=== PATIENT | female | born 1965 | race Caucasian/White ===

== ENCOUNTER 2019-04-08 12:30 | Inpatient (IN) | payer MEDICAID ==
[~2019-04-08] VITALS: Ht 165.1 cm; Wt 136.4 kg
[~2019-04-08 12:30] MED LIST: ALBU18HF2 IH; CITA40TA22 PO; DIAZ5TAB PO; ESOM40CA49 PO; ONDA4TAB6 PO; QUET-1 PO; TOP100T PO; ZOLP5TAB8 PO
[2019-04-08] MEDS ORDERED: ESOM20CA38 PO (17:48)
[2019-04-08] MEDS ORDERED: QUET200T30 PO (17:49)
[2019-04-08] MEDS ORDERED: APIX5TAB3 PO (17:50)
[2019-04-08] MEDS ORDERED: TIZA4TAB5 PO (17:51)
[2019-04-08] MEDS ORDERED: BUPR1TAB40 PO (17:52)
[2019-04-08] MEDS ORDERED: GABA-534 PO (17:52)
[2019-04-08 18:00] VITALS: BP 153/64
--- NOTE | 2019-04-08 18:20 | NUR ---
Received report from MAVIS Coello. Assumed patient care.
[2019-04-08 19:47] LABS: BASOPHILS % (AUTO) 0.6 % (0-1); EOSINOPHILS # (AUTO) 0.2 X10'3 (0-0.9); HEMATOCRIT 37.5 % (35.0-45.0); HEMOGLOBIN 12.3 g/dl (12.0-16.0); LYMPHOCYTES # (AUTO) 2.6 X10'3 (1.1-4.8); LYMPHOCYTES % (AUTO) 43.3 % (21-51); MEAN CORPUSCULAR HEMOGLOBIN 27.5 PG (27.0-31.0); MEAN CORPUSCULAR HGB CONC 32.8 g/dL (33.0-36.5); MEAN CORPUSCULAR VOLUME 83.8 FL (78-98); MEAN PLATELET VOLUME 8.4 FL (7.4-10.4); MONOCYTES # (AUTO) 0.6 X10'3 (0-0.9); MONOCYTES % (AUTO) 9.3 % (2-12); NEUTROPHILS # (AUTO) 2.6 X10'3 (1.8-7.7); NEUTROPHILS % (AUTO) 43.8 % (42-75); PLATELET COUNT 278 X10'3 (140-440); RED BLOOD COUNT 4.48 X10'6 (4.20-5.60); WHITE BLOOD COUNT 5.9 X10'3 (4.5-11.0)
[2019-04-08 19:56] LABS: PARTIAL THROMBOPLASTIN TIME 28 SECONDS (22-32)
[2019-04-08 19:58] LABS: ALANINE AMINOTRANSFERASE 12 U/L (12-78); ALBUMIN 2.7 G/DL (3.4-5.0); ALBUMIN/GLOBULIN RATIO 0.7 (1.1-1.5); ALKALINE PHOSPHATASE 68 IU/L (46-116); ANION GAP 6 (8-16); ASPARTATE AMINO TRANSFERASE 13 U/L (10-37); BILIRUBIN,TOTAL 0.2 MG/DL (0.1-1.0); BLOOD UREA NITROGEN 16 MG/DL (7-18); CALCIUM 9.4 MG/DL (8.5-10.1); CHLORIDE 105 MMOL/L (99-107); CREATININE 0.89 MG/DL (0.40-0.90); GLUCOSE 87 MG/DL (70-104); POTASSIUM 3.8 MMOL/L (3.5-5.1); SODIUM 142 MMOL/L (135-145); TOTAL CARBON DIOXIDE 31.2 MMOL/L (24-32); TOTAL PROTEIN 6.5 G/DL (6.4-8.2); eGFR 66 ML/MIN
[2019-04-08] MEDS ORDERED: diphenhydrAMINE 25mg capsule PO PRN (21:35)
[2019-04-08] MEDS ORDERED: acetaminophen 325mg tablet PO PRN (21:35)
[2019-04-08] MEDS ORDERED: zolpidem 5mg tablet PO PRN (21:35)
[2019-04-08] MEDS ORDERED: HYDROcodone/acetaminophen 10/325mg tab PO PRN (21:35)
[2019-04-08 22:00] VITALS: BP 91/55
[2019-04-08] MEDS: HYDROcodone/acetaminophen 10/325mg tab PO PRN (22:48)
[2019-04-09] VITALS (20 sets, daily range): BP systolic 96–164; BP diastolic 42–99
[2019-04-09] MEDS ORDERED: albuterol 2.5 MG/3 ML nebule NEB PRN (00:55)
[2019-04-09] MEDS: HYDROcodone/acetaminophen 10/325mg tab PO PRN ×2 (04:43→16:57)
[2019-04-09 05:44] LABS: BASOPHILS % (AUTO) 0.9 % (0-1); EOSINOPHILS # (AUTO) 0.2 X10'3 (0-0.9); EOSINOPHILS % (AUTO) 3.6 % (0-6); HEMATOCRIT 36.7 % (35.0-45.0); LYMPHOCYTES # (AUTO) 2.2 X10'3 (1.1-4.8); LYMPHOCYTES % (AUTO) 41.7 % (21-51); MEAN CORPUSCULAR HEMOGLOBIN 27.5 PG (27.0-31.0); MEAN CORPUSCULAR HGB CONC 32.7 g/dL (33.0-36.5); MEAN CORPUSCULAR VOLUME 84.1 FL (78-98); MEAN PLATELET VOLUME 8.4 FL (7.4-10.4); MONOCYTES # (AUTO) 0.5 X10'3 (0-0.9); MONOCYTES % (AUTO) 9.5 % (2-12); NEUTROPHILS # (AUTO) 2.4 X10'3 (1.8-7.7); NEUTROPHILS % (AUTO) 44.3 % (42-75); PLATELET COUNT 240 X10'3 (140-440); RED BLOOD COUNT 4.36 X10'6 (4.20-5.60); RED CELL DISTRIBUTION WIDTH 17.2 % (11.5-14.5); WHITE BLOOD COUNT 5.4 X10'3 (4.5-11.0)
[2019-04-09 06:02] LABS: ANION GAP 5 (8-16); CHLORIDE 106 MMOL/L (99-107); POTASSIUM 4.2 MMOL/L (3.5-5.1); SODIUM 142 MMOL/L (135-145); TOTAL CARBON DIOXIDE 30.7 MMOL/L (24-32)
--- NOTE | 2019-04-09 06:31 | NUR ---
Report given, questions answered and plan of care reviewed with MAVIS Sapp.
--- NOTE | 2019-04-09 06:33 | NUR ---
Patient in room ORTHO 4015. I have received report from Mikayla GAMBLE and had the opportunity to ask questions and assume patient care.
--- NOTE | 2019-04-09 06:38 | NUR ---
received report from Mikayla GAMBLE
[2019-04-09] MEDS: apixaban 5mg tablet PO SCH ×2 (07:01→19:54)
[2019-04-09] MEDS: gabapentin 400mg capsule PO SCH ×2 (07:40→19:54)
[2019-04-09] MEDS: quetiapine 100mg tablet PO SCH ×3 (07:41→20:50)
[2019-04-09] MEDS: pantoprazole 40mg Tablet.DR PO SCH ×2 (07:41→19:55)
[2019-04-09] MEDS: tizanidine 4mg tablet PO PRN ×2 (07:49→20:50)
[2019-04-09] MEDS ORDERED: BUPRENORPHINE HCL PO SCH (08:00)
[2019-04-09] MEDS ORDERED: NALOXONE HCL PO SCH (08:00)
[2019-04-09] MEDS ORDERED: vancomycin 1,000mg inj ONE (11:45)
[2019-04-09] MEDS ORDERED: ROPIVAcaine 0.5% (5mg/ml) 30ml vial ONE ×2 (11:45→13:58)
[2019-04-09] MEDS ORDERED: ketorolac trometh. 30mg/ml inj. ONE (11:45)
--- NOTE | 2019-04-09 12:11 | NUR ---
pt left floor, going to surgery
[2019-04-09] MEDS ORDERED: midazolam 2 mg/2 ml injection ONE (12:33)
[2019-04-09] MEDS ORDERED: fentaNYL /PF 50mcg/ml 5ml ampule ONE (12:33)
[2019-04-09] MEDS ORDERED: ceFAZolin 1000mg inj ONE (13:17)
[2019-04-09] MEDS ORDERED: ketamine 50mg/5ml syringe ONE (13:39)
[2019-04-09] MEDS ORDERED: ringers solution, lacted 1,000 ML IV SCH (13:53)
[2019-04-09] MEDS ORDERED: ROPIVAcaine 0.2%/PF PUMP/bolus 400 ML ADDCANAL SCH (13:53)
[2019-04-09] MEDS ORDERED: ondansetron/PF 4mg/2ml inj IV PRN ×2 (13:55→14:55)
[2019-04-09] MEDS ORDERED: meperidine/PF 25mg/ml syringe IV PRN ×2 (13:55)
[2019-04-09] MEDS ORDERED: proCHLORperazine 10 MG/2 ml inj IV PRN (13:55)
[2019-04-09] MEDS ORDERED: morphine 4 MG/ML inj SYRINge IV PRN ×2 (13:55)
[2019-04-09] MEDS ORDERED: neostigmine methylsulfate 1 MG/ML 10ml vial ONE (13:56)
[2019-04-09] MEDS ORDERED: glycopyrrolate 0.2mg/ml inj ONE (13:56)
[2019-04-09] MEDS ORDERED: rocuronium 10mg/ml inj IV ONE (13:56)
[2019-04-09] MEDS ORDERED: LIDOcaine 2% (20mg/ml) 5ml vial ONE (13:56)
[2019-04-09] MEDS ORDERED: ondansetron/PF 4mg/2ml inj ONE (13:56)
[2019-04-09] MEDS ORDERED: propofol inj 40 ML IV ONE (13:56)
[2019-04-09] MEDS ORDERED: bisacodyl 10mg suppository rectal RC PRN (14:55)
[2019-04-09] MEDS ORDERED: acetaminophen 325mg tablet PO PRN (14:55)
[2019-04-09] MEDS ORDERED: oxyCODONE IR 5mg (immed. release) tablet PO PRN (14:55)
[2019-04-09] MEDS ORDERED: diphenhydrAMINE 25mg capsule PO PRN ×2 (14:55)
[2019-04-09] MEDS ORDERED: HYDROmorphone inj. 0.5 MG/0.5 ML DISP.SYRIN IV PRN (14:55)
[2019-04-09] MEDS ORDERED: magnesium hydroxide 30ml (MOM) UD suspension PO PRN (14:55)
[2019-04-09 15:00] LABS: APPEARANCE,SYNOVIAL FLUID CLOUDY; COLOR,SYNOVIAL FLUID RED
[2019-04-09 15:01] LABS: SYN RBC 17300 /CU MM (0)
[2019-04-09 15:02] LABS: LYMPHOCYTES,SYNOVIAL FLUID 11 % (0-75); MONOCYTES,SYNOVIAL FLUID 4 % (0-0); NEUTROPHILS,SYNOVIAL FLUID 85 % (0-25)
[2019-04-09 15:09] LABS: SYN WBC 4050 /CU MM (0-200)
--- NOTE | 2019-04-09 15:30 | NUR ---
Received from OR via BED , accompanied by Anesthesiologist DR MATA and report given by Anesthesiolgist. PATIENT A&OX4, DENIES PAIN, V/S WNL, NEUROVASCULAR CHECKS INTACT, 20G PIV LUE , ALLISON DRESSING TO RIGHT KNEE CDI W/ COLD POWDER PACK , SCD ON, BRACE LOCKED IN EXTENSION TO RLE, ON QUE BALL WELL.
[2019-04-09] MEDS ORDERED: ipratropium/albuterol 3ml nebule IH ONE (15:35)
[2019-04-09] MEDS: ROPIVAcaine 0.2%/PF PUMP/bolus 550 ML INTERSCALE SCH (15:54)
[2019-04-09] MEDS: meperidine/PF 25mg/ml syringe IV PRN ×4 (15:58→16:26)
--- NOTE | 2019-04-09 16:06 | NUR ---
Malnutrition consult. Patient s/p removal of arthroplasty with implantation of antibiotic spacers to right knee 04/09; per MD note patient has ongoing episodes of LE cellulitis and had suspected infection right TKA. Per MD note, patient has BMI between 45-49.9; no current weight or height documented, d/w bedside RN to obtain both when patient returns from surgery. Patient's BMI two years ago was 45, likely no significant weight loss recently, will continue to monitor. Addendum: 04/09/19 at [address] Amended: Links added.
--- NOTE | 2019-04-09 16:20 | NUR ---
PATIENT A&OX4, DENIES PAIN, V/S WNL, NEUROVASCULAR CHECKS INTACT, 20G PIV LUE , ALLISON DRESSING TO RIGHT KNEE CDI AND SALVATORE WITH SMALL AMOUNT IN DRAin, also knee dressing W/ COLD POWDER PACK , SCD ON, BRACE LOCKED IN EXTENSION TO RLE, ON QUE BALL WELL. PATIENT TAKEN TO ortho WITH ALL BELONGINGS AND HOOKED UP TO MONITORS IN ROOM AND REPORT GIVEN TO KETTLE TENDER WHO HAS TAKEN OVER PATIENT CARE.
--- NOTE | 2019-04-09 16:30 | NUR ---
received post surgical report from JONNY Villa RN
[2019-04-09] MEDS: ceFAZolin 1GM/D5W- ADD-VANTAGE 50 ML IV SCH ×2 (16:59→23:46)
--- NOTE | 2019-04-09 18:05 | NUR ---
Received report from MAVIS Sapp. Assumed patient care.
[2019-04-09] MEDS: potassium cl 20mEq in 1/2 NS 1,000 ML IV SCH ×2 (18:18→19:48)
--- NOTE | 2019-04-09 18:26 | NUR ---
Problems reprioritized. Patient report given, questions answered & plan of care reviewed with Mikayla GAMBLE.
[2019-04-09] MEDS: HYDROmorphone 1 mg/ml syringe IV PRN (19:02)
[2019-04-09] MEDS: acetaminophen 325mg tablet PO SCH (19:54)
[2019-04-09] MEDS: docusate sod 100mg capsule PO SCH (19:54)
[2019-04-09] MEDS ORDERED: vancomycin/NS 1 GM ADD-VANTAGE 250 ML IV SCH (20:00)
[2019-04-09] MEDS: sennosides 8.6mg tablet PO SCH (20:50)
[2019-04-09] MEDS: oxyCODONE IR 5mg (immed. release) tablet PO PRN (21:03)
[2019-04-10] MEDS: acetaminophen 325mg tablet PO SCH ×4 (01:48→20:00)
[2019-04-10] MEDS: oxyCODONE IR 5mg (immed. release) tablet PO PRN ×2 (01:57→05:59)
[2019-04-10 02:00] VITALS: BP 111/68
--- NOTE | 2019-04-10 02:52 | NUR ---
Documented SALVATORE drainage output at right hip, it should be right knee. Addendum: 04/10/19 at 0253 by Mikayla Melchor RN Amended: Links added.
[2019-04-10] MEDS: HYDROmorphone 1 mg/ml syringe IV PRN ×2 (05:02→09:10)
[2019-04-10] MEDS: potassium cl 20mEq in 1/2 NS 1,000 ML IV SCH ×2 (05:09→14:54)
[2019-04-10 06:00] VITALS: BP 105/60
[2019-04-10 06:07] LABS: BASOPHILS % (AUTO) 0.3 % (0-1); EOSINOPHILS # (AUTO) 0.1 X10'3 (0-0.9); EOSINOPHILS % (AUTO) 1.6 % (0-6); HEMOGLOBIN 9.9 g/dl (12.0-16.0); LYMPHOCYTES # (AUTO) 1.5 X10'3 (1.1-4.8); LYMPHOCYTES % (AUTO) 22.6 % (21-51); MEAN CORPUSCULAR HEMOGLOBIN 27.7 PG (27.0-31.0); MEAN PLATELET VOLUME 8.6 FL (7.4-10.4); MONOCYTES # (AUTO) 0.7 X10'3 (0-0.9); MONOCYTES % (AUTO) 9.9 % (2-12); NEUTROPHILS # (AUTO) 4.5 X10'3 (1.8-7.7); NEUTROPHILS % (AUTO) 65.6 % (42-75); PLATELET COUNT 217 X10'3 (140-440); RED BLOOD COUNT 3.57 X10'6 (4.20-5.60); RED CELL DISTRIBUTION WIDTH 17.1 % (11.5-14.5); WHITE BLOOD COUNT 6.8 X10'3 (4.5-11.0)
--- NOTE | 2019-04-10 06:20 | NUR ---
Patient report given, questions answered and plan of care reviewed with MAVIS Sapp.
[2019-04-10 06:22] LABS: ANION GAP 4 (8-16); CHLORIDE 107 MMOL/L (99-107); POTASSIUM 4.4 MMOL/L (3.5-5.1); SODIUM 141 MMOL/L (135-145); TOTAL CARBON DIOXIDE 30.2 MMOL/L (24-32)
--- NOTE | 2019-04-10 06:43 | NUR ---
Patient in room ORTHO 4015. I have received report from DAMION GAMBLE and had the opportunity to ask questions and assume patient care.
[2019-04-10] MEDS: docusate sod 100mg capsule PO SCH ×2 (08:03→20:16)
[2019-04-10] MEDS: apixaban 5mg tablet PO SCH ×2 (08:03→20:17)
[2019-04-10] MEDS: quetiapine 100mg tablet PO SCH ×3 (08:03→22:22)
[2019-04-10] MEDS: pantoprazole 40mg Tablet.DR PO SCH ×2 (08:03→20:16)
[2019-04-10] MEDS: gabapentin 400mg capsule PO SCH ×2 (08:04→20:16)
[2019-04-10] MEDS ORDERED: aspirin 325mg tablet PO SCH (08:30)
[2019-04-10] MEDS: tizanidine 4mg tablet PO PRN ×3 (09:11→22:22)
[2019-04-10] MEDS ORDERED: oxyCODONE/APAP 10/325mg tablet PO PRN (09:30)
[2019-04-10 10:00] VITALS: BP 140/71
[2019-04-10] MEDS: oxyCODONE/APAP 10/325mg tablet PO PRN ×3 (10:09→20:23)
--- NOTE | 2019-04-10 11:42 | NUR ---
Student documentation: I have reviewed all interventions, assessments performed and [facility] Student Medication Administration: For this medication-pass time frame, all medication were reviewed, dispensed, administered and documented per hospital policy by [facility].
[2019-04-10 14:00] VITALS: BP 100/54
[2019-04-10 18:00] VITALS: BP 90/48
--- NOTE | 2019-04-10 18:45 | NUR ---
Patient in room ORTHO 4015. I have received report from MAVIS Sapp and had the opportunity to ask questions and assume patient care.
--- NOTE | 2019-04-10 18:51 | NUR ---
Problems reprioritized. Patient report given, questions answered & plan of care reviewed with Jocelyn GAMBLE.
[2019-04-10] MEDS: sennosides 8.6mg tablet PO SCH (20:23)
[2019-04-10 22:00] VITALS: BP 105/54
[2019-04-11] MEDS: acetaminophen 325mg tablet PO SCH ×3 (01:27→14:00)
[2019-04-11] MEDS: potassium cl 20mEq in 1/2 NS 1,000 ML IV SCH ×2 (02:03→11:28)
[2019-04-11] MEDS: oxyCODONE/APAP 10/325mg tablet PO PRN ×4 (02:04→21:00)
[2019-04-11 02:57] LABS: ANION GAP 2 (8-16); BLOOD UREA NITROGEN 10 MG/DL (7-18); C-REACTIVE PROTEIN 9.75 MG/DL (0.0-0.5); CALCIUM 8.1 MG/DL (8.5-10.1); CHLORIDE 107 MMOL/L (99-107); CREATININE 0.91 MG/DL (0.40-0.90); GLUCOSE 112 MG/DL (70-104); POTASSIUM 4.6 MMOL/L (3.5-5.1); SODIUM 139 MMOL/L (135-145); TOTAL CARBON DIOXIDE 29.7 MMOL/L (24-32); eGFR 65 ML/MIN
[2019-04-11 03:02] LABS: BASOPHILS % (AUTO) 0.3 % (0-1); EOSINOPHILS # (AUTO) 0.3 X10'3 (0-0.9); EOSINOPHILS % (AUTO) 3.6 % (0-6); HEMATOCRIT 26.5 % (35.0-45.0); HEMOGLOBIN 8.8 g/dl (12.0-16.0); LYMPHOCYTES # (AUTO) 1.6 X10'3 (1.1-4.8); LYMPHOCYTES % (AUTO) 22.3 % (21-51); MEAN CORPUSCULAR HGB CONC 33.1 g/dL (33.0-36.5); MEAN CORPUSCULAR VOLUME 84.6 FL (78-98); MEAN PLATELET VOLUME 8.9 FL (7.4-10.4); MONOCYTES # (AUTO) 0.8 X10'3 (0-0.9); MONOCYTES % (AUTO) 11.4 % (2-12); NEUTROPHILS # (AUTO) 4.6 X10'3 (1.8-7.7); NEUTROPHILS % (AUTO) 62.4 % (42-75); PLATELET COUNT 172 X10'3 (140-440); RED BLOOD COUNT 3.14 X10'6 (4.20-5.60); RED CELL DISTRIBUTION WIDTH 17.3 % (11.5-14.5); WHITE BLOOD COUNT 7.3 X10'3 (4.5-11.0)
[2019-04-11] MEDS: HYDROmorphone 1 mg/ml syringe IV PRN (05:11)
[2019-04-11 06:00] VITALS: BP 93/46
--- NOTE | 2019-04-11 06:35 | NUR ---
Problems reprioritized. Patient report given, questions answered & plan of care reviewed with MAVIS Wharton.
--- NOTE | 2019-04-11 06:49 | NUR ---
Patient in room ORTHO 4015. I have received report from Jocelyn GAMBLE and had the opportunity to ask questions and assume patient care. All patients needs met at this time.
[2019-04-11 07:20] VITALS: BP 102/51
[2019-04-11] MEDS: docusate sod 100mg capsule PO SCH ×2 (08:46→21:00)
[2019-04-11] MEDS: apixaban 5mg tablet PO SCH ×2 (08:46→21:00)
[2019-04-11] MEDS: quetiapine 100mg tablet PO SCH ×3 (08:47→21:01)
[2019-04-11] MEDS: pantoprazole 40mg Tablet.DR PO SCH ×2 (08:47→20:59)
[2019-04-11] MEDS: gabapentin 400mg capsule PO SCH ×2 (08:47→21:00)
[2019-04-11] MEDS: tizanidine 4mg tablet PO PRN ×3 (08:54→23:23)
--- NOTE | 2019-04-11 09:37 | NUR ---
Paged Physical Therapy per patient's request to be put back to bed from bedside chair. Re: [id number] Sadia Schneider Pt would like to be put back to bed please. Thank you
[2019-04-11 10:00] VITALS: BP 107/59
[2019-04-11] MEDS ORDERED: VANCOMYCIN LEVEL IV ONE (10:30)
--- NOTE | 2019-04-11 11:42 | NUR ---
Student Medication Administration: For this medication-pass time frame, all medication were reviewed, dispensed, administered and documented per hospital policy [facility] Student documentation: I have reviewed all interventions, assessments performed and documented [facility].
[2019-04-11] MEDS ORDERED: acetaminophen 325mg tablet PO PRN (14:55)
[2019-04-11] MEDS: ROPIVAcaine 0.2%/PF PUMP/bolus 550 ML INTERSCALE SCH (16:17)
[2019-04-11 18:00] VITALS: BP 111/54
--- NOTE | 2019-04-11 18:15 | NUR ---
Patient in room ORTHO 4015. I have received report from MAVIS Wharton and had the opportunity to ask questions and assume patient care.
--- NOTE | 2019-04-11 18:33 | NUR ---
Problems reprioritized. Patient report given, questions answered & plan of care reviewed with Ivet GAMBLE. All patient's needs met at this time.
[2019-04-11] MEDS: lactobacillus rhamnosus 10,000 MMU CELLS/CAPSULE PO SCH (21:00)
[2019-04-11] MEDS: sennosides 8.6mg tablet PO SCH (21:00)
[2019-04-11 22:00] VITALS: BP 101/52
[2019-04-12] MEDS: oxyCODONE/APAP 10/325mg tablet PO PRN ×4 (01:58→23:55)
[2019-04-12 05:23] LABS: BASOPHILS % (AUTO) 0.4 % (0-1); EOSINOPHILS # (AUTO) 0.4 X10'3 (0-0.9); EOSINOPHILS % (AUTO) 6.7 % (0-6); HEMATOCRIT 26.7 % (35.0-45.0); HEMOGLOBIN 8.7 g/dl (12.0-16.0); LYMPHOCYTES # (AUTO) 1.9 X10'3 (1.1-4.8); LYMPHOCYTES % (AUTO) 29.1 % (21-51); MEAN CORPUSCULAR HEMOGLOBIN 27.6 PG (27.0-31.0); MEAN CORPUSCULAR HGB CONC 32.8 g/dL (33.0-36.5); MEAN CORPUSCULAR VOLUME 84.2 FL (78-98); MEAN PLATELET VOLUME 8.8 FL (7.4-10.4); MONOCYTES # (AUTO) 0.8 X10'3 (0-0.9); MONOCYTES % (AUTO) 12.2 % (2-12); NEUTROPHILS # (AUTO) 3.3 X10'3 (1.8-7.7); NEUTROPHILS % (AUTO) 51.6 % (42-75); PLATELET COUNT 170 X10'3 (140-440); RED BLOOD COUNT 3.17 X10'6 (4.20-5.60); RED CELL DISTRIBUTION WIDTH 16.8 % (11.5-14.5); WHITE BLOOD COUNT 6.5 X10'3 (4.5-11.0)
[2019-04-12 05:37] LABS: ANION GAP 7 (8-16); CHLORIDE 105 MMOL/L (99-107); POTASSIUM 4.5 MMOL/L (3.5-5.1); SODIUM 140 MMOL/L (135-145); TOTAL CARBON DIOXIDE 28.2 MMOL/L (24-32)
[2019-04-12 06:00] VITALS: BP 113/68
--- NOTE | 2019-04-12 06:27 | NUR ---
Problems reprioritized. Patient report given, questions answered & plan of care reviewed with MAVIS Jensen.
--- NOTE | 2019-04-12 06:32 | NUR ---
Patient in room ORTHO 4015. I have received report from Ivet and had the opportunity to ask questions and assume patient care.
[2019-04-12] MEDS: lactobacillus rhamnosus 10,000 MMU CELLS/CAPSULE PO SCH ×2 (07:43→20:18)
[2019-04-12] MEDS: apixaban 5mg tablet PO SCH ×2 (07:43→20:18)
[2019-04-12] MEDS: docusate sod 100mg capsule PO SCH ×2 (07:43→20:18)
[2019-04-12] MEDS: gabapentin 400mg capsule PO SCH ×2 (07:44→20:19)
[2019-04-12] MEDS: pantoprazole 40mg Tablet.DR PO SCH ×2 (07:44→20:19)
[2019-04-12] MEDS: quetiapine 100mg tablet PO SCH ×3 (07:45→20:20)
[2019-04-12] MEDS: tizanidine 4mg tablet PO PRN ×3 (08:28→20:22)
[2019-04-12 10:00] VITALS: BP 118/65
--- NOTE | 2019-04-12 12:00 | NUR ---
Initial: Pt admit with cellulitis to right knee s/p TKA. Pt on regular diet with poor PO intake 04/09 however has since been documented with 75-100% PO intake likely closely meeting nutrient needs. LBM 04/09, receiving routine Colace and Senna. No nutrition diagnosis at this time. Will continue to follow and monitor need for additional protein. Recommendations: 1) Continue regular diet 2) Monitor need for ONS/additional protein 3) Bowel care 4) Wt per rx Addendum: 04/12/19 at [address] Amended: Links added.
--- NOTE | 2019-04-12 12:51 | NUR ---
Patient in room ORTHO 4015. I have received report from Camila GAMBLE and had the opportunity to ask questions and assume patient care.
--- NOTE | 2019-04-12 12:53 | NUR ---
Problems reprioritized. Patient report given, questions answered & plan of care reviewed with Gabe.
[2019-04-12] MEDS ORDERED: VANCOMYCIN LEVEL IV ONE (14:30)
[2019-04-12 18:00] VITALS: BP 114/67
--- NOTE | 2019-04-12 18:09 | NUR ---
Problems reprioritized. Patient report given, questions answered & plan of care reviewed with Verna GAMBLE.
--- NOTE | 2019-04-12 18:12 | NUR ---
Patient in room ORTHO 4015. I have received report from Gabe GAMBLE and had the opportunity to ask questions and assume patient care.
[2019-04-12] MEDS: sennosides 8.6mg tablet PO SCH (20:19)
[2019-04-12 22:00] VITALS: BP 109/81
[2019-04-13] MEDS ORDERED: ROPIVAcaine 0.2%/PF PUMP/bolus 550 ML INTERSCALE SCH (00:12)
[2019-04-13] MEDS ORDERED: VANCOMYCIN LEVEL IV ONE (03:00)
[2019-04-13 03:21] LABS: BASOPHILS % (AUTO) 0.7 % (0-1); EOSINOPHILS # (AUTO) 0.4 X10'3 (0-0.9); EOSINOPHILS % (AUTO) 7.5 % (0-6); HEMATOCRIT 25.4 % (35.0-45.0); HEMOGLOBIN 8.3 g/dl (12.0-16.0); LYMPHOCYTES # (AUTO) 1.9 X10'3 (1.1-4.8); LYMPHOCYTES % (AUTO) 32.9 % (21-51); MEAN CORPUSCULAR HEMOGLOBIN 27.6 PG (27.0-31.0); MEAN CORPUSCULAR HGB CONC 32.8 g/dL (33.0-36.5); MEAN CORPUSCULAR VOLUME 84.4 FL (78-98); MONOCYTES # (AUTO) 0.6 X10'3 (0-0.9); MONOCYTES % (AUTO) 11.1 % (2-12); NEUTROPHILS # (AUTO) 2.7 X10'3 (1.8-7.7); NEUTROPHILS % (AUTO) 47.8 % (42-75); PLATELET COUNT 176 X10'3 (140-440); RED BLOOD COUNT 3.01 X10'6 (4.20-5.60); RED CELL DISTRIBUTION WIDTH 17.4 % (11.5-14.5); WHITE BLOOD COUNT 5.7 X10'3 (4.5-11.0)
[2019-04-13 03:33] LABS: ANION GAP 4 (8-16); CHLORIDE 108 MMOL/L (99-107); SODIUM 142 MMOL/L (135-145); TOTAL CARBON DIOXIDE 30.2 MMOL/L (24-32); VANCOMYCIN,RANDOM 18.8 UG/ML
--- NOTE | 2019-04-13 05:26 | NUR ---
CEDRICK'dima SALVATORE drain per order.
[2019-04-13] MEDS: oxyCODONE/APAP 10/325mg tablet PO PRN ×2 (05:31→12:04)
[2019-04-13 06:00] VITALS: BP 107/56
--- NOTE | 2019-04-13 06:31 | NUR ---
Problems reprioritized. Patient report given, questions answered & plan of care reviewed with Gabe GAMBLE.
--- NOTE | 2019-04-13 06:34 | NUR ---
Patient in room ORTHO 4015. I have received report from Verna GAMBLE and had the opportunity to ask questions and assume patient care.
[2019-04-13] MEDS: quetiapine 100mg tablet PO SCH ×2 (07:39→13:38)
[2019-04-13] MEDS: apixaban 5mg tablet PO SCH (07:39)
[2019-04-13] MEDS: gabapentin 400mg capsule PO SCH (07:39)
[2019-04-13] MEDS: docusate sod 100mg capsule PO SCH (07:39)
[2019-04-13] MEDS: lactobacillus rhamnosus 10,000 MMU CELLS/CAPSULE PO SCH (07:39)
[2019-04-13] MEDS: pantoprazole 40mg Tablet.DR PO SCH (07:39)
[2019-04-13] MEDS: tizanidine 4mg tablet PO PRN ×2 (07:47→12:04)
[2019-04-13] MEDS ORDERED: vancomycin/NS 1 GM ADD-VANTAGE 250 ML IV SCH (08:00)
[2019-04-13 10:00] VITALS: BP 122/50
--- NOTE | 2019-04-13 15:35 | NUR ---
Safe DC. With spouse. all personal items with patient.
[2019-04-14] MEDS ORDERED: VANCOMYCIN LEVEL IV ONE (07:30)
== END 2019-04-13 15:40 | disposition home health service (06) | DRG 320 ==
LOC: EDSTATUS 12:30 → ORTHO 4S 17:09 → EDSTATUS 04-09 12:30
PROVIDERS: ADMIT Orthopaedic Surgery; ATTEND Orthopaedic Surgery
PROC: 0SHC08Z Insertion of Spacer into Right Knee Joint, Open Approach (ICD-10-PCS; 2019-04-09)
PROC: 3E0T3BZ Introduction of Anesthetic Agent into Peripheral Nerves and Plexi, Percutaneous Approach (ICD-10-PCS; 2019-04-09)
PROC: 3E0U029 Introduction of Other Anti-infective into Joints, Open Approach (ICD-10-PCS; 2019-04-09)
PROC: 0SPC0JZ Removal of Synthetic Substitute from Right Knee Joint, Open Approach (ICD-10-PCS; principal; 2019-04-09 12:25)
PROC: 02HV33Z Insertion of Infusion Device into Superior Vena Cava, Percutaneous Approach (ICD-10-PCS; 2019-04-10)
PROC: B548ZZA Ultrasonography of Superior Vena Cava, Guidance (ICD-10-PCS; 2019-04-10)
DX: T84.53XA Infection and inflammatory reaction due to internal right knee prosthesis, initial encounter (principal); D62 Acute posthemorrhagic anemia; E66.01 Morbid (severe) obesity due to excess calories; L03.115 Cellulitis of right lower limb; Z68.43 Body mass index [BMI] 50.0-59.9, adult; F43.10 Post-traumatic stress disorder, unspecified; I10 Essential (primary) hypertension; M65.861 Other synovitis and tenosynovitis, right lower leg; F32.9 Major depressive disorder, single episode, unspecified; F41.9 Anxiety disorder, unspecified; G89.29 Other chronic pain; Z96.651 Presence of right artificial knee joint; K21.9 Gastro-esophageal reflux disease without esophagitis; J45.909 Unspecified asthma, uncomplicated; M54.2 Cervicalgia; R73.03 Prediabetes; M79.7 Fibromyalgia; Y83.1 Surgical operation with implant of artificial internal device as the cause of abnormal reaction of the patient, or of later complication, without mention of misadventure at the time of the procedure; Z86.718 Personal history of other venous thrombosis and embolism; Z87.891 Personal history of nicotine dependence; Z90.710 Acquired absence of both cervix and uterus; Z98.1 Arthrodesis status; Z88.8 Allergy status to other drugs, medicaments and biological substances; Z79.899 Other long term (current) drug therapy
CPT/HCPCS: 36415; 36569; 76937; 80048; 80051; 80053; 80202; 82948; 85025; 85610; 85651; 85730; 86140; 86885; 87070; 87075; 87081; 89051; 94640; 94760; 97110; 97112; 97116; 97161; 97530; 97542; A4618; A7000; A9272; C1713; C1758; C1776; G0378; J0690; J1170; J1885; J2001; J2175; J2250; J2270; J2405; J2704; J2710; J2795; J3010; J3370; J3480; J3490; J7030; J7120; L1832

== ENCOUNTER 2020-01-22 07:45 | Outpatient (CLI) | payer MEDICAID ==
[~2020-01-22] VITALS: Ht 182.9 cm; Wt 129.5 kg
[~2020-01-22 07:45] MED LIST changes: +APIX5TAB3 PO; +BUPR1TAB40 PO; -CITA40TA22 PO; -DIAZ5TAB PO; +ESOM20CA38 PO; -ESOM40CA49 PO; +GABA-534 PO; -ONDA4TAB6 PO; -QUET-1 PO; +QUET200T30 PO; +TIZA4TAB5 PO; -TOP100T PO
[2020-01-22] MEDS ORDERED: nitroGLYCERIN 0.4mg SUBLingual tab SL PRN (09:15)
[2020-01-22] MEDS ORDERED: aminophylline 250mg/10ml inj. IV PRN (09:15)
[2020-01-22] MEDS ORDERED: metoprolol tartrate 1mg/ml inj IV PRN (09:15)
[2020-01-22] MEDS ORDERED: regadenoson 0.4mg/5ml syringe IV PRN (09:25)
[2020-01-22 09:46] VITALS: BP 145/71
[2020-01-22 09:48] VITALS: BP 140/61
[2020-01-22 09:49] VITALS: BP 147/69
[2020-01-22 09:50] VITALS: BP 141/70
[2020-01-22 09:51] VITALS: BP 139/70
[2020-01-22 09:52] VITALS: BP 144/69
== END 2020-01-22 23:59 | disposition home or self-care (01) ==
LOC: RAD 07:45
PROVIDERS: ATTEND Internal Medicine Cardiovascular Disease
DX: Z01.810 Encounter for preprocedural cardiovascular examination (principal)
CPT/HCPCS: 78452; 93017; A9500; J2785